=== PATIENT | female | born 1975 | race Two or more races ===

== ENCOUNTER 2017-02-17 16:31 | Emergency (ER) | payer OTHER, MEDICAID ==
[~2017-02-17 16:31] MED LIST: ADVIL200 M3 PO; ANEXSIA 5/325 M1 TAB PO; BACTRIM DS1 TA1 PO; CLINDAMYCIN HC300 M2 PO; FLAGYL500 M1 PO; HYDROCODON-ACE1 EA16 PO; MILK OF MAGNESIA PO; MINOCIN100 M2 PO; MULTIVITAMINS1 EAC6 PO; NO MEDS; NORCO 10/325 TA1 TAB PO; PROMETHAZINE HC25 M3 PO; PROTONIX40 M2 PO; PROVENTIL HFA6.7 G1 INH; RIFAMPIN300 MG PO; TRAMADOL HCL50 M2 PO; ZOFRAN ODT8 MG PO
[2017-02-17] MEDS ORDERED: CYCLOBENZAPRINE5 M1 PO (18:17)
[2017-02-17] MEDS ORDERED: NORCO 5-325 TA1 EACH PO (20:13)
== END 2017-02-17 20:20 ==
LOC: EDMED 16:31
DX: S30.0XXA Contusion of lower back and pelvis, initial encounter (principal); Z98.890 Other specified postprocedural states; F17.200 Nicotine dependence, unspecified, uncomplicated; W19.XXXA Unspecified fall, initial encounter; Y92.830 Public park as the place of occurrence of the external cause